=== PATIENT | male | born 1965 | race Caucasian/White ===

== ENCOUNTER 2020-04-19 11:46 | Emergency (ER) | payer SELFPAY ==
[~2020-04-19] VITALS: Ht 170.2 cm; Wt 97.5 kg
[2020-04-19 11:58] VITALS: Ht 170.2 cm; Wt 97.5 kg
[2020-04-19 12:31] LABS: BASOPHIL % 0.5 % (0-2); PLATELET COUNT 206 x10^3mcL (130-400); RED CELL DISTRIBUTION WIDTH 12.5 % (11.5-14.5)
[2020-04-19 12:46] LABS: CALCIUM 8.7 mg/dL (8.5-10.1); CARBON DIOXIDE 27.4 mmol/L (21-32); CHLORIDE SERUM 100 mmol/L (98-107); CREATININE SERUM 0.9 mg/dL (0.7-1.3); GFR1 > 60 mL/min; GLUCOSE SERUM 121 mg/dL (74-106); POTASSIUM SERUM 3.8 mmol/L (3.5-5.1); SODIUM SERUM 137 mmol/L (136-145)
[2020-04-19 12:50] LABS: ALBUMIN 3.8 g/dL (3.4-5.0); ALKALINE PHOSPHATASE 55 U/L (46-116); ALT/SGPT 92 U/L (16-63); AST/SGOT 75 U/L (15-37); BILIRUBIN TOTAL 0.6 mg/dL (0.20-1.00); LIPASE 111 IU/L (73-393)
[2020-04-19 13:03] LABS: TOTAL PROTEIN, SERUM 3.8 g/dL (6.4-8.2)
[2020-04-19 14:14] VITALS: BP 134/78
== END 2020-04-19 14:16 | disposition home or self-care (01) ==
LOC: ED 11:46
PROVIDERS: Emergency Medicine
DX: K40.20 Bilateral inguinal hernia, without obstruction or gangrene, not specified as recurrent (principal); K59.00 Constipation, unspecified
CPT/HCPCS: J1885; J7030